=== PATIENT | male | born 1995 | race Caucasian/White ===

== ENCOUNTER 2019-08-29 19:55 | Emergency (ER) | payer SELFPAY ==
[~2019-08-29] VITALS: Ht 188 cm; Wt 131.5 kg
[2019-08-29 19:59] VITALS: Ht 188 cm; Wt 131.5 kg
[2019-08-29 20:46] LABS: BASOPHILS 0.2 % (0-2); EOSINOPHILS 1.1 % (0-7); HEMATOCRIT 42.3 % (42.0-54.0); HEMOGLOBIN 14.3 g/dL (13.5-17.5); IMMATURE GRANULOCYTES 0.4 % (0-5); MCH 30.6 pg (26.0-34.0); MCHC 33.8 g/dL (31.0-37.0); MCV 90.4 fL (80.0-100.0); MEAN PLATELET VOLUME 10.1 fL (7.4-10.4); MONOCYTES 8.8 % (2-11); NEUTROPHILS 71.5 % (40-80); PLATELET COUNT 319 10x3/uL (130-400); RBC 4.68 10x6/uL (4.20-6.10); RDW 13.9 % (11.5-14.5); WBC 16.9 10x3/uL (4.8-10.8)
[2019-08-29 21:02] LABS: ANION GAP 8.1 mmol/L (8-16); CALCIUM 8.9 mg/dL (8.5-10.1); CREATININE - SERUM 1.4 mg/dL (0.6-1.3); POTASSIUM - SERUM 3.1 mmol/L (3.5-5.1)
[2019-08-29 21:26] LABS: APPEARANCE CLEAR (CLEAR); BILIRUBIN NEGATIVE (NEGATIVE); COLOR YELLOW (YELLOW); GLUCOSE NEGATIVE (NEGATIVE); KETONE NEGATIVE (NEGATIVE); NITRITE NEGATIVE (NEGATIVE); PROTEIN TRACE mg/dL (NEGATIVE); UROBILINOGEN NORMAL (NORMAL)
[2019-08-29 21:27] LABS: ALBUMIN 4.2 g/dL (3.4-5.0); BILIRUBIN - TOTAL 0.47 mg/dL (0.2-1.3); PROTEIN - SERUM 8.2 g/dL (6.4-8.2)
[2019-08-29 21:29] LABS: RED CELLS - URINE 0-5 /hpf (0-5); WHITE CELLS - URINE 0-5 /hpf (NEGATIVE)
[2019-08-29 21:30] LABS: BACTERIA FEW /hpf (NEGATIVE); EPITHELIAL CELLS 0-5 /hpf (0-5); MUCUS >1+ /lpf (NONE SEEN)
[2019-08-29 21:33] LABS: TROPONIN-I 0.016 ng/mL (0.000-0.060)
[2019-08-29] MEDS ORDERED: CIPRO500 MG PO (23:28)
[2019-08-29] MEDS ORDERED: FLAGYL500 MG PO (23:28)
[2019-08-29] MEDS ORDERED: LOMOTIL 2.5-0.1 EAC1 PO (23:28)
[2019-08-29] MEDS ORDERED: ZOFRAN ODT4 MG/UDTAB PO (23:28)
[2019-08-29 23:40] VITALS: BP 129/53
== END 2019-08-29 23:41 | disposition home or self-care (01) ==
LOC: D.ER 19:55
PROVIDERS: Family Medicine
DX: K52.89 Other specified noninfective gastroenteritis and colitis (principal); E87.6 Hypokalemia; F17.200 Nicotine dependence, unspecified, uncomplicated